=== PATIENT | male | born 1995 | race Caucasian/White ===

== ENCOUNTER 2019-03-10 17:21 | Emergency (ER) | payer SELFPAY ==
[2019-03-10 17:31] VITALS: BP 143/73; PULSE 78; RESP 16; TEMP 37; O2SAT 99; BMI 22.3
--- NOTE | 2019-03-10 17:46 | XRR_ITS ---
PROCEDURE INFORMATION: Exam: XR Left Wrist Exam date and time: 03/10/2019 5:48 PM Age: 23 years old Clinical indication: Injury or trauma; Fall; Initial encounter; Abrasion; Wrist; Left; Additional info: Fall and now has left wrist pain TECHNIQUE: Imaging protocol: XR Left wrist. Views: 3 or more views. COMPARISON: No relevant prior studies available. FINDINGS: Bones/joints: Normal. Soft tissues: Normal. XR/XR wrist LT min 3V* [id number] IMPRESSION: No acute findings.
--- NOTE | 2019-03-10 17:46 | W.ED.EXTPRO ---
HPI - Extremity Problem General: Chief complaint: Extremity Injury, Upper Stated complaint: fall/left wrist pain and back pain Time Seen by Provider: 03/10/19 17:37 History of Present Illness: HPI Narrative: Patient is a 23-year-old male comes into the ED with left wrist pain and right back pain after falling. Patient says he was at home and he was walking down a ramp and slipped and caught himself with his left wrist but he also ended up hitting the right side of his back. Denies any chest pain currently, shortness of breath, nausea, vomiting, abdominal pain, hematuria, dysuria, constipation, diarrhea, blood in stool, limited range of motion. Review of Systems General: Reports: 10 or more systems reviewed and unremarkable except in HPI and below PFSH ED PFSH: Statuses (acute, chronic, etc) shown below reflect problem list status as previously entered and may not be historically accurate Social History Smoking and tobacco status: current every day smoker Physical Exam Narrative: EXAM NARRATIVE: Patient is a 21-year-old male who is sitting comfortably in exam chair showing no signs of acute distress or pain. Left wrist showed no signs of swelling. Const: COMMON NORMALS: oriented x3 HENMT: COMMON NORMALS: normocephalic HEAD & SCALP: normocephalic MOUTH: oral and palatal mucosa normal THROAT: posterior oropharynx normal and uvula midline Neck/C-Spine: COMMON NORMALS: supple GENERAL: Yes normal visual inspection Resp: COMMON NORMALS: normal respiratory effort, no retractions, no use of accessory muscles and clear to auscultation bilaterally AUSCULTATION: clear to auscultation bilaterally Cardio: COMMON NORMALS: regular rate, regular rhythm, S1 normal heart sound, S2 normal heart sound, no gallops, no clicks, no murmurs and peripheral pulses 2+ throughout RATE: regular rate RHYTHM: regular rhythm HEART SOUNDS: S1 normal and S2 normal PERIPHERAL PULSES: pulses 2+ throughout GI: COMMON NORMALS: normal to inspection, nondistended, normoactive bowel sounds, soft to palpation, non-tender and no masses PALPATION: Yes soft : COMMON NORMALS: Yes no CVA tenderness BLADDER/KIDNEY EXAM: Yes no CVA tenderness Back/Pelvis: COMMON NORMALS: no CVA tenderness THORACIC SPINE/UPPER BACK: Yes paraspinal muscle tenderness Thoracic paraspinal muscle tenderness: right Extremity: LEFT UPPER EXTREMITY: Yes wrist (normal and no swelling) Left wrist: Yes inspection, Yes palpation (mild tenderness throughout left wrist), Yes ROM (normal but painful when moving) and Yes neurovascular exam (Intact) Neuro: COMMON NORMALS: oriented x3 and moves all extremities Course ED course: X-ray of the left wrist show no acute findings or bone fractures. Vital Signs: Vital signs: Vital Signs Temperature 98.6 F 03/10/19 17:31 Pulse Rate 90 03/10/19 19:13 Respiratory Rate 16 03/10/19 19:13 Blood Pressure 116/63 03/10/19 19:13 Pulse Oximetry 95 03/10/19 19:13 Discharge Plan Discharge Patient Disposition: Home, Self-Care Clinical Impression: Sprain and strain of wrist Contusion of right back wall of thorax Qualifiers: Encounter type: initial encounter Qualified Code(s): S20.221A - Contusion of right back wall of thorax, initial encounter Condition: Stable Prescriptions: No Action No Known Home Medications RF: 0 Discharge Orders: Discharge Order (Routine); Ordered 03/10/19 Ordered By: Tawanda Medina Discharge Diet: Regular Discharge Activity: Increase activity as tolerated Activity Restrictions/Additional Instructions: Follow-up with primary care doctor in 5-7 days for reevaluation. Apply ice and/or warm heat on back and wrist for symptom relief. Take [id number] Aleve or ibuprofen for pain. Increase activity as tolerated. Discharge Date/Time: 03/10/19 19:14 Coding Level of Care Code ED Residential Sales Representative for Nick Moeller
[2019-03-10] MEDS: ketorolac 30 mg/mL INJ IM (19:10)
[2019-03-10 19:13] VITALS: BP 116/63; PULSE 90; RESP 16; O2SAT 95
== END 2019-03-10 19:14 | disposition home or self-care (01) ==
PROVIDERS: Emergency Provider Physician Assistant
DX: S66.912A Strain of unspecified muscle, fascia and tendon at wrist and hand level, left hand, initial encounter (principal); S63.502A Unspecified sprain of left wrist, initial encounter; S20.221A Contusion of right back wall of thorax, initial encounter; W01.0XXA Fall on same level from slipping, tripping and stumbling without subsequent striking against object, initial encounter; Y92.009 Unspecified place in unspecified non-institutional (private) residence as the place of occurrence of the external cause; F17.210 Nicotine dependence, cigarettes, uncomplicated
CPT/HCPCS: 73110; 96372; 99281; J1885

== ENCOUNTER 2020-03-10 16:38 | Emergency (ER) | payer SELFPAY ==
[2020-03-10 16:43] VITALS: BP 141/82; PULSE 101; RESP 18; TEMP 36.8; O2SAT 97; BMI 27.4
[2020-03-10 16:47] VITALS: BP 119/75; PULSE 96; RESP 18; O2SAT 97
--- NOTE | 2020-03-10 17:21 | PC.NURSE ---
Read and agree with assessment.
--- NOTE | 2020-03-10 17:32 | ED_ITS ---
HPI - Extremity Problem General: Chief complaint: Extremity Injury, Upper Stated complaint: L SHOULDER PAIN Time Seen by Provider: 03/10/20 17:11 History of Present Illness: HPI Narrative: Patient complains about left shoulder pain lifted a heavy toolbox last week and now his shoulder is hurting. Complaint: joint pain Onset (ago): hour(s) Pain Consistency: constant Location: left and upper extremity Severity scale (1-10): 4 Quality: aching Radiation: none Relieving factors: immobilization Exacerbating factors: range of motion Associated symptoms: Reports no associated symptoms; Deny fever(s) Review of Systems Const: Denies: fever(s) or chills Musc: Reports: joint pain (Left shoulder area thinks may be injured it last week is on medication) Psych: Denies: anxiety or depression PFSH ED PFSH: Social History Smoking and tobacco status: current every day smoker Physical Exam Const: COMMON NORMALS: no acute distress Chest: COMMONS NORMALS: normal inspection of the chest Extremity: LEFT UPPER EXTREMITY: Yes shoulder joint (Apley scratch test positive for the inferior and superior aspect. Stable t) Left shoulder joint: Yes special tests (Tenderness to the supraspinatus approximately a) Psych: COMMON NORMALS: mental status grossly normal Course Vital Signs: Vital signs: Vital Signs Temperature 98.2 F 03/10/20 16:43 Pulse Rate 96 03/10/20 16:47 Respiratory Rate 18 03/10/20 16:47 Blood Pressure 119/75 03/10/20 16:47 Pulse Oximetry 97 03/10/20 16:47 Discharge Plan Discharge Patient Disposition: Home Clinical Impression: Impingement syndrome, shoulder, left Condition: Stable Prescriptions: New ibuprofen 600 mg tablet 600 mg PO Q6H PRN (Reason: pain) Qty: 20 RF: 0 Discharge Orders: Discharge ED (Routine); Ordered 03/10/20 Ordered By: David Felipe Discharge Diet: Usual diet Discharge Activity: Increase activity as tolerated Patient Instructions: Rotator Cuff Injury (ED) Activity Restrictions/Additional Instructions: Follow-up with medical provider as directed. Take medications as prescribed. Return to the ER or your medical provider if condition worsens. Please read and understand discharge instructions. If any questions ask please. Apply ice to the shoulder every couple hours. Do some stretching exercises shoulder impingement exercises that you can find on the Internet follow-up your family medical provider. Coding Level of Care Code ED Clinical Nursing Assistant for Nick Moeller
== END 2020-03-10 17:32 | disposition home or self-care (01) ==
PROVIDERS: Emergency Provider Nurse Practitioner Family
DX: M75.42 Impingement syndrome of left shoulder (principal); F17.210 Nicotine dependence, cigarettes, uncomplicated
CPT/HCPCS: 12345; 99281

== ENCOUNTER 2020-03-23 12:50 | Emergency (ER) | payer SELFPAY ==
[2020-03-23 13:24] VITALS: BP 131/82; PULSE 77; RESP 14; TEMP 36.8; O2SAT 97; BMI 28.3
--- NOTE | 2020-03-23 13:29 | XR_ITS ---
WS: [id number] Exam: XR chest 1V portable [id number] Date/Time of Exam: 03/23/2020 1:43 PM Reason For Exam: CP Comparison 09/10/2017. Findings: The lungs are clear and fully expanded. Costophrenic angles are sharp. No infiltrates. Bronchovascula r relief appears normal. Cardiac silhouette is unremarkable. Bony elements are intact. XR/XR chest 1V portable [id number] IMPRESSION: Unremarkable chest radiograph.
--- NOTE | 2020-03-23 14:46 | W.ED.CHESTPA ---
HPI - Chest Pain General: Chief Complaint: Chest Pain Stated Complaint: CP Time Seen by Provider: 03/23/20 14:44 History of Present Illness: HPI narrative: Patient is in [facility] [facility]. Was in middle of a polygraph test today and developed chest discomfort. Feels stressed. complaint: chest discomfort Timing of current episode: episodic Prior episodes: Yes Onset: other (Polygraph test) Pain location: substernal Pain radiation: none Severity: mild Quality: heaviness Relieving factors: nothing Exacerbating factors: stress Context: other (In [place] [facility]) Associated symptoms: Reports no associated symptoms; Deny abdominal pain, dyspnea, fever(s), nausea or vomiting Review of Systems Const: Denies: fever(s), chills or body aches Eyes: Denies: change in vision or blurry vision ENMT: Denies: throat pain or nasal congestion Card: Reports: chest pain; Denies: dyspnea on exertion Resp: Denies: dyspnea, productive cough or non-productive cough GI: Denies: abdominal pain, nausea or vomiting : Denies: difficulty urinating Musc: Denies: extremity pain Skin/Breast: Denies: rash Neuro: Denies: headache(s) Psych: Reports: anxiety; Denies: depression Bandar/Lymph: Denies: easy bruising PFSH ED PFSH: Social History Smoking and tobacco status: current every day smoker Physical Exam Const: COMMON NORMALS: no acute distress, average body habitus and patient oriented x3 HENMT: COMMON NORMALS: normocephalic HEAD & SCALP: normal to inspection and normocephalic FACE & SINUS: normal facial exam Eye: COMMON NORMALS: conjunctivae normal GENERAL EYE: appearance normal, both eyes and all related structures CONJUNCTIVA: Yes conjunctivae normal Neck/C-Spine: COMMON NORMALS: no JVD Chest: COMMONS NORMALS: normal inspection of the chest Resp: COMMON NORMALS: normal respiratory effort and clear to auscultation bilaterally AUSCULTATION: clear to auscultation bilaterally Cardio: COMMON NORMALS: no JVD, regular rate and regular rhythm RATE: regular rate RHYTHM: regular rhythm Extremity: COMMON NORMALS: normal to inspection and full ROM Neuro: COMMON NORMALS: patient oriented x3 Course Vital Signs: Vital signs: Vital Signs Temperature 98.3 F 03/23/20 13:24 Pulse Rate 77 03/23/20 13:24 Respiratory Rate 14 03/23/20 13:24 Blood Pressure 131/82 03/23/20 13:24 Pulse Oximetry 97 03/23/20 13:24 Discharge Plan Discharge Patient Disposition: Home Condition: Stable Prescriptions: No Action ibuprofen 600 mg tablet 600 mg PO Q6H PRN (Reason: pain) Qty: 20 RF: 0 Discharge Orders: Discharge ED (Routine); Ordered 03/23/20 Ordered By: David Felipe Discharge Diet: Usual diet Discharge Activity: Resume usual activity Patient Instructions: Stress (ED) Activity Restrictions/Additional Instructions: Follow-up your primary care provider when she get out of [facility] [facility]. Decrease stress in your life. Deep breathing exercises. Coding Level of Care Code ED Package Delivery Room Service Runner for Nick Moeller
[2020-03-23 14:55] VITALS: BP 131/82; PULSE 77; RESP 14; O2SAT 97
== END 2020-03-23 15:08 | disposition home or self-care (01) ==
PROVIDERS: Emergency Provider Nurse Practitioner Family
DX: R07.9 Chest pain, unspecified (principal); F17.210 Nicotine dependence, cigarettes, uncomplicated
CPT/HCPCS: 12345; 71045; 99282; 99283

== ENCOUNTER → 2022-05-20 10:05 | Outpatient (BNVA) | payer SELFPAY | PROVIDERS: Visit Provider Nurse Practitioner Family | DX: B19.20 Unspecified viral hepatitis C without hepatic coma (principal); Z11.59 Encounter for screening for other viral diseases; F99 Mental disorder, not otherwise specified; F41.9 Anxiety disorder, unspecified | CPT/HCPCS: 80053; 80061; 85025; 86705; 86706; 86709; 86803; 87340; 87522 ==

== ENCOUNTER → 2022-11-21 11:19 | Outpatient (BNVA) | payer SELFPAY | PROVIDERS: Visit Provider Nurse Practitioner Family | DX: B19.20 Unspecified viral hepatitis C without hepatic coma (principal); F41.9 Anxiety disorder, unspecified; F99 Mental disorder, not otherwise specified | CPT/HCPCS: 80053; 80061; 84443; 85025 ==